=== PATIENT | female | born 1985 | race Two or more races ===

== ENCOUNTER 2016-12-30 16:42 | Emergency (ER) | payer MEDICAID ==
[~2016-12-30] VITALS: Ht 157.5 cm; Wt 76.9 kg
[~2016-12-30 16:42] MED LIST: CLIN150C14 PO; DIPH1TAB PO; INSU100I11 SQ; INSU100V13 SQ; INSU100V5 SQ; NPH,100V SQ
[2016-12-30] MEDS ORDERED: ONDANSETRON 2MG/ML, 2ML IVPush ONE ×2 (17:00→17:30)
[2016-12-30] MEDS ORDERED: SODIUM CHLORIDE FLUSH 10ML SYR IVF ONE ×2 (17:00→17:30)
[2016-12-30] MEDS ORDERED: SODIUM CHLORIDE 0.9% 1,000ML IVBOLUS ONE ×2 (17:00→17:30)
[2016-12-30] MEDS ORDERED: SODIUM CHLORIDE 0.9% 1,000 ML IV ONE (17:05)
[2016-12-30 17:24] LABS: HEMOGLOBIN 13.8 g/dL (11.7-16.4); WHITE BLOOD COUNT 9.3 x10^3/uL (3.4-10)
[2016-12-30] MEDS ORDERED: FAMOTIDINE 20 MG/2 ML ONE (17:28)
[2016-12-30] MEDS ORDERED: HYDROmorphone 1 MG/ML, 1ML ONE (17:28)
[2016-12-30] MEDS ORDERED: ONDANSETRON 2MG/ML, 2ML ONE ×2 (17:28→19:18)
[2016-12-30] MEDS ORDERED: FAMOTIDINE 20 MG/2 ML IVP ONE (17:30)
[2016-12-30] MEDS ORDERED: HYDROmorphone 1 MG/ML, 1ML IVPush PRN (17:30)
[2016-12-30 17:34] LABS: ASPARTATE AMINO TRANSFERASE 19 U/L (15-37); BLOOD UREA NITROGEN 15 mg/dL (7-18)
[2016-12-30] MEDS ORDERED: METOCLOPRAMIDE 5 MG/ML, 2ML ONE (19:18)
[2016-12-30] MEDS ORDERED: METOCLOPRAMIDE 5 MG/ML, 2ML IVPush ONE (19:30)
[2016-12-30 20:23] VITALS: BP 106/69
== END 2016-12-30 20:31 | disposition home or self-care (01) ==
LOC: ED 18:49
DX: R10.30 Lower abdominal pain, unspecified (principal); R11.2 Nausea with vomiting, unspecified; N28.9 Disorder of kidney and ureter, unspecified; E86.0 Dehydration; E10.65 Type 1 diabetes mellitus with hyperglycemia; F17.200 Nicotine dependence, unspecified, uncomplicated; Z79.4 Long term (current) use of insulin
CPT/HCPCS: 36415; 80053; 81003; 82010; 84703; 85025; 96361; 96374; 96375; 96376; 99285; J1170; J2405; J2765; J7030; S0028